=== PATIENT | female | born 1945 | race Hispanic/Latino ===

== ENCOUNTER 2025-01-15 13:42 | Emergency (ER) | payer MEDICARE ==
[~2025-01-15] VITALS: Ht 154.9 cm; Wt 62.1 kg
--- NOTE | 2025-01-15 14:02 | ERN ---
General Chief Complaint: Chest Pain Stated Complaint: CP Time Seen by MD: 13:46 Source: patient History of Present Illness Initial Comments Patient Is a 79-year-old female coming in complaining of elevated blood pressure. A Long with the elevated blood pressure patient states he has been having left-sided chest discomfort for about four weeks. Allergies: Coded Allergies: No Known Drug Allergies (Unverified Allergy, Unknown, 01/15/25) Past Medical History Past Medical History: CAD, High Cholesterol, Hypertension, Other Medical History Other: cardiac stent Past Surgical History: Other Surgical History Other: cardiac stent ROS Dictation CONSTITUTIONAL: No chills, no fever, no weakness, no diaphoresis, no malaise. HEAD/FACE: No signs of trauma. EENT: No eye pain, no blurred vision, no tearing, no double vision, no ear pain, no ear discharge, no nose pain, no nasal congestion, no throat pain, no throat swelling, no mouth pain. RESPIRATORY: No cough, no orthopnea, no SOB, no stridor, no wheezing. CARDIOVASCULAR: No chest pain, no edema, no palpitations, no syncope. GASTROINTESTINAL/ABDOMINAL: No abdominal pain, no constipation, no diarrhea, no nausea, no vomiting. GENITOURINARY: No abnormal discharge, no dysuria, no frequent urination, no hematuria. No complaints of pain in the genitals. MUSCULOSKELETAL: No back pain, no gout, no joint pain, no joint swelling, no muscle pain, no muscle stiffness, no neck pain. INTEGUMENTARY: No change in color, no change in hair/nails, no dryness, no lesion, no lumps, no rash. NEUROLOGICAL/PSYCH: No anxiety, not depressed, no emotional problem, no headache, no numbness, no pre-existing deficit, no history of seizures, no tremors, no weakness. HEMATOLOGIC/LYMPHATIC: Not anemic, no history of blood clots, no apparent bleeding, no bruising, glands not swollen. All Systems Negative, Except as Noted. Physical Exam Physical Exam Dictation VITAL SIGNS: Reviewed. GENERAL APPEARANCE: Alert, oriented x3, no acute distress, obese. HEAD AND FACE: Non-traumatic. EYES: PERRL, pink conjunctivas, eyelid no trauma, anterior chamber clear. EARS: Pinnas intact and no signs of trauma or erythema. Ear canals clear and no discharge. TMs no erythema. NOSE: No discharge, no bleeding. OROPHARYNX: Mouth normal, teeth no caries, tongue pink. Pharynx clear, no erythema. Tonsils no exudates, no abscesses noted. Mucous membrane moist. NECK: Supple, non-tender, no thyromegaly, no masses, no JVD, no bruits. BREAST: Deferred. CHEST: No tenderness, no crepitus, no paradoxical movement, no retractions. LUNGS: Clear, well-ventilated, symmetric, no rales, no wheezing, no rhonchi, no stridor, good breath sounds bilaterally. HEART: Regular rate, regular rhythm, no murmur, no gallops. VASCULAR: No peripheral edema. ABDOMEN: Soft, positive bowel sounds, nondistended, no guarding, nontender, no rebound, no masses no hepatomegaly, no splenomegaly, no Castillo's sign, no hernias. RECTAL: Deferred. GENITAL: Deferred. NEUROLOGICAL: Normal speech, gross motor function intact, gross sensory function intact. MUSCULOSKELETAL: Neck nontender, full range of motion, back nontender, full range of motion. EXTREMITIES: Nontender, full range of motion. SKIN: Color pink, dry, no turgor, no rash, no lacerations, no abrasions, no contusions. LYMPHATICS: Deferred. Results Laboratory and Microbiology Lab and Micro Result Laboratory Tests Test 01/15/25 13:58 01/15/25 15:15 01/15/25 15:52 White Blood Count 7.7 K/uL (4.8-10.8) Red Blood Count 4.78 MIL/uL (4.00-5.50) Hemoglobin 13.3 g/dL (12.0-16.0) Hematocrit 40.9 % (36-48) Mean Corpuscular Volume 85.6 fL (79-99) Mean Corpuscular Hemoglobin 27.8 pg (27.0-33.0) Mean Corpuscular Hemoglobin Concent 32.5 g/dL (32.0-36.0) Red Cell Distribution Width 13.5 % (11.0-15.5) Platelet Count 328 K/uL (130-400) Mean Platelet Volume 8.9 fL (7.5-10.5) Immature Granulocyte % (Auto) 0.3 % (0-1) Neutrophils (%) (Auto) 61.0 % (40.0-77.0) Lymphocytes (%) (Auto) 24.4 % (21.0-51.0) Monocytes (%) (Auto) 7.8 % (3.0-13.0) Eosinophils (%) (Auto) 5.2 % (0.0-8.0) Basophils (%) (Auto) 1.3 % (0.0-5.0) Neutrophils # (Auto) 4.7 K/uL (1.8-7.7) Lymphocytes # (Auto) 1.9 K/uL (1.0-4.8) Monocytes # (Auto) 0.6 K/uL (0.1-1.0) Eosinophils # (Auto) 0.40 K/uL (0.00-0.70) Basophils # (Auto) 0.10 K/uL (0.00-0.20) Absolute Immature Granulocyte (auto 0.02 K/uL (0-1) Nucleated Red Blood Cells 0.0 % (0.0-0.19) Prothrombin Time 10.3 SEC (9.6-11.6) Prothromb Time International Ratio 0.97 (0.85-1.15) Activated Partial Thromboplast Time 27.4 SEC (26.3-35.5) Sodium Level 137 mmol/L (136-145) Potassium Level 4.0 mmol/L (3.5-5.1) Chloride Level 97 mmol/L (101-111) L Carbon Dioxide Level 28 mmol/L (21-32) Blood Urea Nitrogen 19 mg/dL (7-18) H Creatinine 1.1 mg/dL (0.5-1.0) H Glomerular Filtration Rate Calc 52 mL/min (>90) Random Glucose 97 mg/dL (70-105) Total Calcium 9.0 mg/dL (8.5-10.1) Magnesium Level 2.10 mg/dL (1.80-2.40) Total Creatine Kinase 175 U/L (21-232) Troponin I High Sensitivity 15 ng/L (4-50) 14 ng/L (4-50) Urine Color LIGHT-YELLOW (YELLOW) Urine Appearance CLEAR (CLEAR) Urine pH 7.0 (5.0-8.0) Urine Specific [place] 1.015 (1.001-1.031) Urine Protein NEGATIVE mg/dL (NEGATIVE) Urine Glucose (UA) NEGATIVE mg/dL (NEGATIVE) Urine Ketones NEGATIVE mg/dL (NEGATIVE) Urine Occult Blood NEGATIVE (NEGATIVE) Urine Nitrate NEGATIVE (NEGATIVE) Urine Bilirubin NEGATIVE mg/dL (NEGATIVE) Urine Urobilinogen 2.0 mg/dL (0.2-1.0) H Urine Leukocyte Esterase NEGATIVE [place]/uL Urine RBC None /HPF (0-1) Urine WBC 0-1 /HPF (0-1) Urine Squamous Epithelial Cells RARE /HPF (0-2) Urine Bacteria None /HPF (None Seen) Labs Reviewed?: Yes EKG/XRAY/US/CT/MRI EKG Comment 01/15/2025 time 1:46 p.m. Ventricular rate 72 Sinus rhythm [place] [address] wave elevation or depression X-RAY Comment chest xray - nad MDM MDM: Differential diagnosis: Chest wall pain, muscle strain, STEMI, NSTEMI, anxiety, Rationale: Tests considered and ordered secondary to shared decision making include: Previous outside records reviewed: Old ER visits. Risk of complication and/or morbidity or mortality of patient management: None Medications-Per medication reconciliation Need for hospitalization: Patient does not meet criteria for hospitalization. Need for emergency major/minor surgery: No Since 79-year-old female coming in to be evaluated for left shoulder pain. Per patient this has been ongoing for several weeks. Cardiac workup was negative for acute findings. Patient states that she has been under lot of stress as her has been hospitalized and feels as if her anxiety is getting out of control. I did advised her appropriate follow up with PCP also advised him of the findings of the laboratory workup which she states is a relief. Throughout ER visit patient has been pain-free in the pain is present only with movement. ED Course Orders Procedure Category Date Status Time Cbc With Differential LAB 01/15/25 Complete 13:48 Prothrombin Time With LAB 01/15/25 Complete INR 13:48 Chest 1vw RAD 01/15/25 Taken 13:48 12 Lead Ekg Tracing- EKG 01/15/25 Resulted Technical 13:48 Magnesium LAB 01/15/25 Complete 13:48 Creatine Kinase, Total LAB 01/15/25 Complete 13:48 Troponin I High LAB 01/15/25 Complete Sensitivity 13:48 Urinalysis Profile LAB 01/15/25 Complete 13:48 Partial LAB 01/15/25 Complete Thromboplastin Time 13:48 Basic Metabolic Panel LAB 01/15/25 Complete 13:48 Troponin I High LAB 01/15/25 Complete Sensitivity 15:44 Vital Signs Date Time Temp Pulse Resp B/P (MAP) Pulse Ox O2 Delivery O2 Flow Rate FiO2 01/15/25 15:37 64 20 181/115 96 Room Air* 0 21 01/15/25 13:50 98.1 67 18 207/68 96 Room Air* 0 21 01/15/25 13:46 98.1 67 18 207/68 96 Room Air 0 DX & DISP Disposition: Discharge Departure Impression: Primary Impression: Pectoralis major tendonitis Additional Impression: Anxiety Condition: Stable Additional Instructions: You have been reviewed in the emergency department at [facility] after presenting with chest pain. After considering your history, your risk factors, your EKG and your blood test troponins, have been found to be at very low risk less than (1 in 100) of having a major adverse cardiac event (like heart attack) in the near future. In the " low risk" group, the risks of doing further tests and treatment as the inpatient outweighs the benefits. In many patients in the low risk group for the test of any sort or unnecessary, however he should discuss this further with his general practitioner who will understand the medical and personal backgrounds better. Because we have never declared you" no risk" we would suggest. 1 returning for medical review if you have further episodes of chest pain/arm pain or other concerning symptoms like dizziness, collapse, palpitations or shortness of breath. 2. Following up with your local doctor who will consider the need for further testing and will also ensure that any modifiable risk factors you may have for heart disease are optimally managed. Patient will be discharged in stable condition at the moment discharge patient states , no chest pain Referrals: MARTY MICHELLE MD Time of Disposition: 16:45 ZAYNAB ESCOBEDO MD Jan 15, 2025 14:02
--- NOTE | 2025-01-15 14:04 | EKG ---
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
[2025-01-15 14:14] LABS: IMMATURE GRANULOCYTE ABSOLUTE 0.02 K/uL (0-1); NUCLEATED RED BLOOD CELLS 0.0 % (0.0-0.19); PLATELET COUNT (AUTO) 328 K/uL (130-400); RED BLOOD CELL COUNT(AUTO) 4.78 MIL/uL (4.00-5.50); RED CELL DISTRIBUTION WIDTH 13.5 % (11.0-15.5); WHITE BLOOD COUNT (AUTO) 7.7 K/uL (4.8-10.8)
[2025-01-15 14:25] LABS: INR 0.97 (0.85-1.15)
[2025-01-15 14:34] LABS: CREATININE 1.1 mg/dL (0.5-1.0); GLOMERULAR FILTR. RATE CALC 52.0 mL/min (>90); GLUCOSE,RANDOM 97.0 mg/dL (70-105); SODIUM SERUM 137.0 mmol/L (136-145); UREA NITROGEN, BLOOD 19.0 mg/dL (7-18)
[2025-01-15 14:45] LABS: CREATINE KINASE, TOTAL 175.0 U/L (21-232)
--- NOTE | 2025-01-15 15:15 | NUR ---
PT BROUGHT IN TO [facility] AT THIS TIME.
[2025-01-15 15:24] LABS: APPEARANCE,URINE CLEAR (CLEAR); GLUCOSE, URINE (UA) NEGATIVE (NEGATIVE); LEUKOCYTE ESTERASE ,URINE NEGATIVE Leu/uL (NEGATIVE); NITRATE,URINE NEGATIVE (NEGATIVE); OCCULT BLOOD,URINE NEGATIVE (NEGATIVE)
[2025-01-15 15:27] LABS: ADD UA MICROSCOPIC YES
[2025-01-15 15:35] LABS: SQUAMOUS EPITHELIAL CELL,UR RARE /HPF (0-2)
[2025-01-15 17:03] VITALS: BP 157/64; PULSE 65; RESP 18; TEMP 98.1; O2SAT 99
--- NOTE | 2025-01-16 13:02 | HMCIMG ---
CHEST 1VW REASON: cp COMPARISON: None. FINDINGS: Single view of the chest was obtained. Lungs are clear. Heart size is normal. There is no pulmonary vascular congestion. Mediastinum and bony thorax appear unremarkable. IMPRESSION: 1. No acute cardiopulmonary process.
== END 2025-01-15 17:02 | disposition home or self-care (01) ==
LOC: EDH 13:42
DX: M77.9 Enthesopathy, unspecified (principal); F41.9 Anxiety disorder, unspecified; I25.10 Atherosclerotic heart disease of native coronary artery without angina pectoris; E78.00 Pure hypercholesterolemia, unspecified; I10 Essential (primary) hypertension; Z95.5 Presence of coronary angioplasty implant and graft
CPT/HCPCS: 36415; 71045; 80048; 81001; 82550; 83735; 84484; 85025; 85610; 85730; 93005; 99285